=== PATIENT | male | born 1985 | race Caucasian/White ===

== ENCOUNTER 2018-12-23 21:43 | Emergency (ER) | payer MEDICAID ==
[~2018-12-23] VITALS: Ht 190.5 cm; Wt 140.6 kg
[2018-12-23 21:53] VITALS: BP 111/68
[2018-12-23] MEDS ORDERED: KETOROLAC 30 MG/ML VIAL IVP ONE (22:10)
[2018-12-23] MEDS ORDERED: ONDANSETRON 4 MG/2 ML VIAL IVP ONE (22:10)
[2018-12-23] MEDS ORDERED: NACL 0.9% 1,000 ML IV ONE (22:10)
--- NOTE | 2018-12-23 22:15 | NUR ---
C/O N/V, WATERY STOOL, UMPILICAL PAIN, HANKS, AND PALIPITATIONS X2 DAYS. HR 135. BLOOD GLUCOSE 168. TOLD 1 YEAR AGO THAT HE MAY HAVE DM BUT HAS NOT FOLLOWED UP. 10/10 PAIN. ALSO C/O OF LIGHT SENSITIVITY AND CLOUDY VISION.
--- NOTE | 2018-12-23 22:23 | NUR ---
DR RAZO AT BEDSIDE.
[2018-12-23 22:28] LABS: BASOPHILS % (AUTO) 0.3 % (0.0-2.0); EOSINOPHILS % (AUTO) 0.1 % (0.0-4.0); HEMATOCRIT 46.3 % (36-52); LYMPHOCYTES # (AUTO) 1.2 K/uL (2.0-11.5); LYMPHOCYTES % (AUTO) 10.1 % (20.5-51.1); MEAN CORPUSCULAR HEMOGLOBIN 30 pg (27-31); MEAN CORPUSCULAR HGB CONC 35 g/dL (33-37); MONOCYTES # (AUTO) 0.5 K/uL (0.8-1.0); MONOCYTES % (AUTO) 4.5 % (1.7-9.3); NEUTROPHILS # (AUTO) 10.2 K/uL (1.8-7.7); PLATELET COUNT (AUTO) 323 K/uL (140-450); RED BLOOD CELL COUNT(AUTO) 5.27 MIL/uL (4.20-6.10); RED CELL DISTRIBUTION WIDTH 12.8 % (11.6-13.7)
[2018-12-23 22:32] LABS: APPEARANCE,URINE CLEAR (CLEAR); BILIRUBIN,URINE NEGATIVE (NEGATIVE); BLOOD, URINE NEGATIVE (NEGATIVE); COLOR,URINE YELLOW (YELLOW); LEUKOCYTE ESTERASE ,URINE NEGATIVE (NEGATIVE); NITRITE, URINE NEGATIVE (NEGATIVE); PH,URINE 5.5 (5.0-9.0); UGLUCOSE 3+ (NEGATIVE)
[2018-12-23 22:53] LABS: ALBUMIN 3.6 g/dL (3.4-5.0); ANION GAP 11.7 (8-16); CARBON DIOXIDE 27.3 mmol/L (21-32); CREATININE 1.2 mg/dL (0.7-1.3); TOTAL BILIRUBIN 0.9 mg/dL (0.0-1.0)
[2018-12-23 22:59] LABS: RBC,URINE NONE SEEN /HPF (0-5); WBC,URINE NONE SEEN /HPF (0-5)
--- NOTE | 2018-12-23 23:05 | NUR ---
PATIENT STATES IMPROVED PAIN AFTER MEDICATION AND BOLUS.
[2018-12-23 23:25] VITALS: BP 116/64
--- NOTE | 2018-12-23 23:25 | NUR ---
Patient discharged with v/s stable. Written and verbal after care instructions given and explained. Patient alert, oriented and verbalized understanding of instructions. Ambulatory with steady gait. All questions addressed prior to discharge. ID band removed. Patient advised to follow up with PMD. Rx of MOTRIN AND ZOFRAN given. Patient educated on indication of medication including possible reaction and side effects. Opportunity to ask questions provided and answered.
== END 2018-12-23 23:25 | disposition home or self-care (01) ==
LOC: MED 21:43
DX: K52.9 Noninfective gastroenteritis and colitis, unspecified (principal); E11.9 Type 2 diabetes mellitus without complications
CPT/HCPCS: 36415; 74022; 80053; 81001; 82948; 85025; 96361; 96374; 96375; 99284; J1885; J2405; J7030; Q0092